=== PATIENT | male | born 1965 | race Caucasian/White ===

== ENCOUNTER → 2019-09-13 | Outpatient (CLI) | payer OTHER ==
--- NOTE | 2019-09-13 14:10 | RADIOLOGY REPORT (SQ) ---
EXAM DESCRIPTION: VENOUS UNILATERAL LOWER IMAGES COMPLETED DATE/TIME: 09/13/2019 1:44 pm REASON FOR STUDY: RLE SWELLING R22.41 LOCALIZED SWELLING, MASS AND LUMP, RIGHT LOWER LIMB COMPARISON: None. TECHNIQUE: Dynamic and static allen scale and color images acquired of the right leg venous system. S elected spectral images acquired with additional compression and augmentation maneuvers. The contrala teral common femoral vein and saphenofemoral junction were also imaged. Images stored on PACS. LIMITATIONS: None. FINDINGS: COMMON FEMORAL: Normal phasicity, compression and augmentation. No visualized echogenic ma terial on allen scale. No defects on color images. FEMORAL: Normal compression and augmentation. No visualized echogenic material on allen scale. No defe cts on color images. POPLITEAL: Normal compression, augmentation. No visualized echogenic material on allen scale. No defec ts on color images. CALF VESSELS: Normal compression, augmentation. No visualized echogenic material on allen scale. No de fects on color images. GSV and SSV: Normal compression, augmentation. No visualized echogenic material on allen scale. No def ects on color images. ANY DEEP VENOUS INSUFFICIENCY: No. ANY EVIDENCE OF POPLITEAL CYST: No. OTHER: Fluid collection in the posterior soft tissues of the mid calf, measuring 0.8 by 4.9 cm. CONTRALATERAL COMMON FEMORAL VEIN AND SAPHENOFEMORAL JUNCTION: Normal phasicity, compression and augmentation. No visualized echogenic material on allen scale. No de fects on color images. IMPRESSION: NO EVIDENCE DVT OR SVT IN THE RIGHT LEG. FLUID COLLECTION IN THE POSTERIOR SOFT TISSUES OF THE MID CALF. THIS IS AT THE SITE OF PREVIOUS TRAU MA AND MAY REPRESENT A RESOLVING HEMATOMA. TECHNICAL DOCUMENTATION: JOB ID: [id number] 2010 [employer]- All Rights Reserved Reading location - IP/workstation name: [email or web address]
== END ==
LOC: SP 12:33
PROVIDERS: ATTEND Physician Assistant
DX: M79.661 Pain in right lower leg (principal); R22.41 Localized swelling, mass and lump, right lower limb
CPT/HCPCS: 93971